=== PATIENT | female | born 1930 | race Caucasian/White ===

== ENCOUNTER 2016-04-04 13:45 | Inpatient (IN) | payer OTHER ==
[~2016-04-04] VITALS: Ht 162.6 cm; Wt 48.5 kg
--- NOTE | ~2016-04-04 | EKG ---
[address] [address] ELECTROCARDIOGRAM REPORT Name: REYNA HERNANDEZ Room #: 170-12 ADM IN M.R.#: [id number] Admission: 04/04/16 Attend Phys: Yakov Hernandez MD Discharge: Date of : 30 Report #: [id number] THIS REPORT FOR: //name// [facility] ED Test Date: 2016-04-04 Test Time: 14:37:28 Pat Name: REYNA HERNANDEZ Department: Room: 170 Gender: F Rate Examiner: Roland SAMUEL : 1930 Requested By: Rubén Avalos Order Number: [id number] MD: Rosendo Smith Measurements Intervals [place] Rate: 61 P: -17 AL: 216 QRS: -29 QRSD: 81 T: 121 QT: 448 QTc: 452 Interpretive Statements Sinus rhythm Borderline prolonged AL interval LVH with secondary repolarization abnormality Anterior Q waves, possibly due to LVH Compared to ECG 12/20/2015 08:30:43 No significant change Electronically Signed On 04-04-2016 16:47:00 [address] INS[address]OR by Rosendo Smith [email or web address] <ELECTRONICALLY SIGNED> By: Rosendo Smith MD 04/04/16 [id number] Rosendo Smith MD /[facility]
--- NOTE | ~2016-04-04 | H ---
[facility] [place] [address] HISTORY AND PHYSICAL Name: REYNA HERNANDEZ Room #: 535-P [facility] IN M.R.#: [id number] Admission: 04/04/16 Attend Phys: Yakov Hernandez MD Discharge: 04/09/16 Date of : 30 Report #: [id number] THIS REPORT FOR: //name// CC: Yakov HOANG DATE OF SERVICE: 04/04/2016 PRIMARY CARE DOCTOR: Dr. Jose L Hoang. CHIEF COMPLAINT: Weakness. HISTORY OF PRESENT ILLNESS: The patient is an 86-year-old female with a history of diabetes, hypothyroidism, dysphagia secondary to poor dentition, who presented to the ER secondary to weakness. The patient's is currently being cared for by myself in the CCU and she was staying with him. While in the hospital, she has been noted to be very weak, requiring odd assistance from the staff, although she was not a current patient at that time. The nursing supervised her and the staff felt that she needed to be evaluated in the ER. Evaluation by the ER clinician revealed that the patient was dehydrated and very weak. We were subsequently asked to admit her for weakness, dehydration and inability to care for herself at home. PAST MEDICAL HISTORY: As stated, type 2 diabetes, dyslipidemia, dysphagia secondary to poor dentition, hemorrhoids and she had some rectal bleeding likely related to that as well, lichens planus, prior left pelvic fracture in 2012. PAST SURGICAL HISTORY: Cholecystectomy, hernia repair, left foot repair secondary to a fall, right total knee replacement, hysterectomy. CURRENT MEDICATIONS: Synthroid 0.1 mg daily, prednisone 5 mg daily, glipizide ER 2.5 every other day, Lipitor 20 mg daily, aspirin 81 daily, Caltrate, Zinc 50 mg daily. ALLERGIES: AVAPRO causes itching and irritation, PENICILLIN, reaction unknown. SOCIAL HISTORY: Does not smoke or drink. Lives with her independently, though I believe he is providing with her care. REVIEW OF SYSTEMS: A 14-point review of system was conducted. All negative except she indicates she has not been eating very well because of poor dentition. FAMILY HISTORY: Reviewed and noncontributory. PHYSICAL EXAMINATION: [facility] [address] [place] [address] HISTORY AND PHYSICAL Name: REYNA HERNANDEZ Room #: 535-P [facility] IN [facility].#: [id number] Admission: 04/04/16 Attend Phys: Yakov Hernandez MD Discharge: 04/09/16 Date of : 30 Report #: [id number] VITAL SIGNS: Temperature 97, pulse 61, blood pressure 157/76, O2 sat 99% on room air. GENERAL: She is sleepy but arousable, in no acute respiratory distress, follows commands, is pleasant, but very frail appearing. HEENT: Normocephalic, atraumatic. Neck was supple. Pupils are unequal. Mucous membranes are very dry. Oropharynx is clear. NECK: Supple. CARDIOVASCULAR: Regular rate and rhythm. No murmurs. LUNGS: Clear to auscultation bilaterally. No crackles or wheeze. ABDOMEN: Soft, no distention or tenderness. EXTREMITIES: No edema. NEUROLOGIC: Nonfocal. LABS AND TESTING: Chest x-ray was negative. Sodium 142, potassium 4.2, BUN and creatinine 26 and 1.2. LFTs are negative. CBC showed no significant abnormalities. ASSESSMENT AND PLAN: 1. Dehydration, likely secondary to poor intake and overall poor nutritional status. Continue IV hydration, encouraged oral intake, may need nutritional evaluation. 2. Chronic debility and weakness. We will get PT and OT to evaluate her and see whether or not she needs skilled or rehab placement on discharge. 3. Type 2 diabetes. Continue home medications and sliding scale insulin. 4. Dyslipidemia. Continue the same. 5. Deep venous thrombosis prophylaxis, with Lovenox. <ELECTRONICALLY SIGNED> By: Hortensia Webb MD 04/28/162009 1711 1859 Hortensia Webb MD /nt
[~2016-04-04 13:45] MED LIST: ADULT LOW DOSE81 MG PO; ALENDRONATE; ALLEGRA180 MG PO; AMLODIPINE BESYL5 MG PO; ANALPRAM HC 2.559 ML RC; ANUSOL-HC25 MG RECTAL; APAP500 PO; ASPIRIN EC81 M1 PO; AVAPRO 150 MG150 M1 PO; BENADRYL25 MG; CALTRATE-600 W1 EACH PO; CELEBREX 200 M200 MG; CELEBREX 200 M200 MG PO; CENTRUM COMPLE1 EACH PO; CITRATE OF MAG296 ML PO; COLACE100 MG PO; EDARBI40 MG PO; FISH OIL 1,0001 EAC5 PO; FISH OIL 1,001000 M1 PO; FORTAMET; FORTAMET PO; FOSAMAX 70 MG T70 M1 PO; GLIPIZIDE ER2.5 MG PO; GLIPIZIDE XL2.5 MG PO; GLUCOSAMINE HC500 MG PO; GOLYTELY4000 M1 PO; HYDROCHLOROTHIA25 M1 PO; IRON325 PO; LANSOPRAZOLE30 MG PO; LEVAQUIN 500 M500 M3; LIPITOR20 MG PO; LIPITOR40 MG PO; MIRALAX255 GM PO; NASACORT; NASACORT NASAL; NASACORT NS; NORCO 7.5-3251 EACH PO; NORVASC 2.5 MG2.5 MG PO; NYSTATIN 1100000 U/M PO; OXYCODONE HCL5 M1 PO; PREDNISONE; PREDNISONE 5 MG5 M1 PO; PREVACID 30MG C30 M1 PO; PREVACID PO; SYNTHROID 0.10.1 M1 PG; SYNTHROID100 MCG PO; TRAMADOL-ACETA1 EACH PO; ULTRACET PO; VITAMIN D400 UNI1 PO; ZINC50 M1 PO
[2016-04-04 13:47] VITALS: BP 149/83
[2016-04-04 14:28] LABS: ABSOLUTE NEUTROPHILS 3.6 thou/uL (1.4-8.2); BASOPHILS 1.3 % (0.0-2.0); EOSINOPHILS 0.6 % (0.0-3.0); HEMATOCRIT 39.4 % (37.0-47.0); HEMOGLOBIN 12.9 gm/dL (12.0-15.0); LYMPHOCYTES 32.2 % (24.0-44.0); MCH 25.5 pg (26.0-34.0); MCHC 32.6 % (28.0-37.0); MONOCYTES 7.7 % (1.0-8.0); PLATELET COUNT 291 thou/uL (150-400); POLYS 58.2 % (36.0-66.0); RBC 5.05 mil/uL (4.20-5.00); RDW 17.4 % (10.5-14.5); WBC 6.3 thou/uL (4.0-11.0)
[2016-04-04 14:30] LABS: MANUAL DIFF NO
[2016-04-04 14:35] LABS: ANION GAP 5 mmol/L (7-16); BUN 26 mg/dL (7-18); CALCIUM 9.7 mg/dL (8.5-10.1); CHLORIDE 104 mmol/L (98-107); CO2 33 mmol/L (21-32); CREATININE 1.2 mg/dL (0.6-1.3); GLUCOSE 113 mg/dL (70-99); POTASSIUM 4.2 mmol/L (3.5-5.1); SODIUM 142 mmol/L (136-145)
[2016-04-04 14:54] LABS: ALBUMIN 3.4 g/dL (3.4-5.0); ALKALINE PHOSPHATASE 103 U/L (46-116); CK-MB MASS 3.1 ng/mL (<0.5-3.6); MAGNESIUM 2.1 mg/dL (1.8-2.4); NT-PRO BRAIN NAT PEPTIDE 935 pg/mL (<300); SGOT 24 U/L (15-37); SGPT 22 U/L (30-65); TOTAL BILIRUBIN 0.4 mg/dL (<0.1-1.0); TOTAL PROTEIN 8.1 g/dL (6.4-8.2); TROPONIN-I < 0.04 ng/mL (<0.04-0.07)
[2016-04-04 16:11] VITALS: BP 157/76
[2016-04-04 19:12] VITALS: BP 168/71
[2016-04-04 20:53] LABS: TROPONIN-I < 0.04 ng/mL (<0.04-0.07)
[2016-04-05 04:57] LABS: URINE BILIRUBIN NEGATIVE (Negative); URINE BLOOD 1+ (Negative); URINE COLOR YELLOW; URINE GLUCOSE-RANDOM* NEGATIVE (Negative); URINE KETONES NEGATIVE (Negative); URINE LEUKOCYTES-REFLEX NEGATIVE (Negative); URINE PROTEIN (DIPSTICK) NEGATIVE (Negative); URINE SPECIFIC GRAVITY 1.015 (1.003-1.035); URINE UROBILINOGEN 0.2 E.U./dl (0.2-1.0)
[2016-04-05 05:50] LABS: CASTS None Seen /LPF (None Seen); SQUAMOUS None Seen /LPF (0-3); URINE RBC 3-10 Few /HPF (0-2); URINE WBC-REFLEX 0-5 Rare /HPF (0-5)
[2016-04-05 05:51] LABS: CRYSTALS None Seen /LPF (None Seen)
[2016-04-05 11:24] LABS: ABSOLUTE NEUTROPHILS 4.7 thou/uL (1.4-8.2); BASOPHILS 0.7 % (0.0-2.0); EOSINOPHILS 0.8 % (0.0-3.0); HEMATOCRIT 38.4 % (37.0-47.0); HEMOGLOBIN 12.4 gm/dL (12.0-15.0); LYMPHOCYTES 21.9 % (24.0-44.0); MCH 25.1 pg (26.0-34.0); MCHC 32.3 % (28.0-37.0); MCV 77.7 fL (80.0-100.0); MONOCYTES 6.3 % (1.0-8.0); PLATELET COUNT 259 thou/uL (150-400); POLYS 70.3 % (36.0-66.0); RBC 4.93 mil/uL (4.20-5.00); RDW 17.2 % (10.5-14.5); WBC 6.6 thou/uL (4.0-11.0)
[2016-04-05 11:26] LABS: MANUAL DIFF NO
[2016-04-05 11:53] LABS: ANION GAP 10 mmol/L (7-16); BUN 17 mg/dL (7-18); CALCIUM 9.3 mg/dL (8.5-10.1); CHLORIDE 102 mmol/L (98-107); CO2 28 mmol/L (21-32); GLUCOSE 100 mg/dL (70-99); POTASSIUM 3.9 mmol/L (3.5-5.1); SODIUM 140 mmol/L (136-145); TROPONIN-I < 0.04 ng/mL (<0.04-0.07)
[2016-04-05 16:15] VITALS: BP 142/72
[2016-04-05 19:35] VITALS: BP 144/74
[2016-04-06 08:17] VITALS: BP 126/79
[2016-04-06 16:47] VITALS: BP 141/78
[2016-04-06 20:54] VITALS: BP 139/66
[2016-04-07 07:50] VITALS: BP 126/81
[2016-04-07 19:42] VITALS: BP 135/61
[2016-04-08 05:28] VITALS: BP 143/78
[2016-04-08 07:25] VITALS: BP 149/73
[2016-04-08 16:51] VITALS: BP 137/78
[2016-04-08 19:18] VITALS: BP 131/62
[2016-04-09 03:00] VITALS: BP 166/77
[2016-04-09 05:00] VITALS: BP 167/80
== END 2016-04-09 14:35 | DRG 640 ==
LOC: ER 13:45 → 5S 15:24 → EROBS 15:24 → 5S 16:23
PROVIDERS: Emergency Medicine; Family Medicine
DX: E86.0 Dehydration (principal); G93.40 Encephalopathy, unspecified; E44.0 Moderate protein-calorie malnutrition; Z68.1 Body mass index [BMI] 19.9 or less, adult; Z96.651 Presence of right artificial knee joint; F03.90 Unspecified dementia, unspecified severity, without behavioral disturbance, psychotic disturbance, mood disturbance, and anxiety; M62.81 Muscle weakness (generalized); E11.9 Type 2 diabetes mellitus without complications; E03.9 Hypothyroidism, unspecified; E78.5 Hyperlipidemia, unspecified; Z88.0 Allergy status to penicillin; Z88.8 Allergy status to other drugs, medicaments and biological substances; Z90.49 Acquired absence of other specified parts of digestive tract; Z90.710 Acquired absence of both cervix and uterus; Z98.890 Other specified postprocedural states; Z28.21 Immunization not carried out because of patient refusal
CPT/HCPCS: 10086